=== PATIENT | female | born 1950 | race Caucasian/White ===

== ENCOUNTER 2017-07-28 07:00 | Outpatient (CLI) | payer OTHER ==
[~2017-07-28] VITALS: Ht 160 cm; Wt 110.7 kg
== END 2017-07-28 09:00 | disposition home or self-care (01) ==
LOC: EKG 07:00 → SURH 08-04 12:15 → EDSTATUS 08-04 12:15 → SURH 08-04 12:45
DX: D12.8 Benign neoplasm of rectum (principal); D12.9 Benign neoplasm of anus and anal canal; C20 Malignant neoplasm of rectum; K92.1 Melena; Z86.010 Personal history of colon polyps; R59.0 Localized enlarged lymph nodes; Z01.810 Encounter for preprocedural cardiovascular examination

== ENCOUNTER 2017-11-03 05:40 | Inpatient (IN) | payer OTHER ==
[~2017-11-03] VITALS: Ht 157.5 cm; Wt 112.0 kg
[~2017-11-03 05:40] MED LIST: ELIQUIS5 MG PO; GABAPENTIN300 MG PO; HUMULIN 70100 UNIT/2 SUBCUTANEO; LASIX40 MG PO; LEVO-T175 MCG PO; LOSARTAN POTAS100 MG PO; SIMVASTATIN40 MG PO; TOPROL XL50 M1 PO
== END 2017-11-05 22:27 | disposition expired | DRG 329 ==
LOC: O/R 05:40 → SURG 05:40 → SURH 14:10 → SURG 11-05 22:27
PROVIDERS: Colon & Rectal Surgery
PROC: 0DTP4ZZ Resection of Rectum, Percutaneous Endoscopic Approach (ICD-10-PCS; 2017-11-03)
PROC: 07TC4ZZ Resection of Pelvis Lymphatic, Percutaneous Endoscopic Approach (ICD-10-PCS; 2017-11-03)
PROC: 0D1B4Z4 Bypass Ileum to Cutaneous, Percutaneous Endoscopic Approach (ICD-10-PCS; 2017-11-03)
PROC: 0DQ84ZZ Repair Small Intestine, Percutaneous Endoscopic Approach (ICD-10-PCS; 2017-11-03)
PROC: 0DN84ZZ Release Small Intestine, Percutaneous Endoscopic Approach (ICD-10-PCS; 2017-11-03)
PROC: 0DJD8ZZ Inspection of Lower Intestinal Tract, Via Natural or Artificial Opening Endoscopic (ICD-10-PCS; 2017-11-03)
PROC: 0DTN4ZZ Resection of Sigmoid Colon, Percutaneous Endoscopic Approach (ICD-10-PCS; principal; 2017-11-03 15:00)
PROC: 02HV33Z Insertion of Infusion Device into Superior Vena Cava, Percutaneous Approach (ICD-10-PCS; 2017-11-04)
PROC: 5A1935Z Respiratory Ventilation, Less than 24 Consecutive Hours (ICD-10-PCS; 2017-11-05)
PROC: 0BH17EZ Insertion of Endotracheal Airway into Trachea, Via Natural or Artificial Opening (ICD-10-PCS; 2017-11-05)
PROC: 4A033R1 Measurement of Arterial Saturation, Peripheral, Percutaneous Approach (ICD-10-PCS; 2017-11-05)
PROC: 3E0F7GC Introduction of Other Therapeutic Substance into Respiratory Tract, Via Natural or Artificial Opening (ICD-10-PCS; 2017-11-05)
DX: D12.8 Benign neoplasm of rectum (principal); J95.821 Acute postprocedural respiratory failure; K52.0 Gastroenteritis and colitis due to radiation; K91.71 Accidental puncture and laceration of a digestive system organ or structure during a digestive system procedure; N17.8 Other acute kidney failure; B37.0 Candidal stomatitis; J95.89 Other postprocedural complications and disorders of respiratory system, not elsewhere classified; J98.11 Atelectasis; R59.0 Localized enlarged lymph nodes; K66.0 Peritoneal adhesions (postprocedural) (postinfection); E87.5 Hyperkalemia; N99.0 Postprocedural (acute) (chronic) kidney failure; E66.01 Morbid (severe) obesity due to excess calories; N18.3 Chronic kidney disease, stage 3 (moderate); D64.89 Other specified anemias; B96.1 Klebsiella pneumoniae [K. pneumoniae] as the cause of diseases classified elsewhere; E11.22 Type 2 diabetes mellitus with diabetic chronic kidney disease; I13.10 Hypertensive heart and chronic kidney disease without heart failure, with stage 1 through stage 4 chronic kidney disease, or unspecified chronic kidney disease